=== PATIENT | male | born 2000 | race African-American/Black ===

== ENCOUNTER 2020-02-10 12:27 | Emergency (ER) | payer MEDICAID ==
[~2020-02-10] VITALS: Ht 175.3 cm; Wt 63.6 kg
[2020-02-10 12:41] VITALS: TEMP 98.5
[2020-02-10] MEDS ORDERED: CIPRO 500MG TA500 MG PO (14:42)
[2020-02-10 15:45] VITALS: BP 105/68; PULSE 78
== END 2020-02-10 15:49 | disposition home or self-care (01) ==
LOC: COL.ER 12:27
DX: S91.331A Puncture wound without foreign body, right foot, initial encounter (principal); W22.8XXA Striking against or struck by other objects, initial encounter; Y92.59 Other trade areas as the place of occurrence of the external cause; Y99.0 Civilian activity done for income or pay